=== PATIENT | female | born 1985 | race Caucasian/White ===

== ENCOUNTER 2016-05-03 02:12 | Outpatient (CLI) | payer BC ==
[~2016-05-03] VITALS: Ht 162.6 cm; Wt 67.0 kg
[2016-05-03 04:26] VITALS: Ht 162.6 cm; Wt 67.0 kg
[2016-05-03] MEDS ORDERED: CHOL1000 PO (04:36)
[2016-05-03] MEDS ORDERED: PRENTAB26 PO (04:36)
--- NOTE | 2016-05-11 07:31 | EDITING REQUIRED CODING QUERY ---
DIAGNOSIS NEEDED To promote full compliance with coding requirements relating to patient care, physician participation is requested in all cases of medical biller/coder uncertainty. Please assist us with the question(s) below: Coding Question: The patient received care in labor and delivery on 05/03/16 as noted within the record. Please document the diagnosis that is being addressed by the medication/treatment. Provider Response: DIAGNOSIS: Irregular uterine contractions Thank you for your assistance, Hanane Li - [employer]
== END 2016-05-03 05:09 | disposition home or self-care (01) ==
LOC: C.LD 02:12 → C.OPB 02:12
PROVIDERS: ATTEND Obstetrics & Gynecology
DX: O62.9 Abnormality of forces of labor, unspecified (principal); Z3A.37 37 weeks gestation of pregnancy

== ENCOUNTER 2016-05-28 04:59 | Inpatient (IN) | payer BC ==
[~2016-05-28] VITALS: Ht 160 cm; Wt 68.0 kg
[~2016-05-28 04:59] MED LIST: CHOL1000 PO; PRENTAB26 PO
[2016-05-28 05:30] VITALS: Ht 160 cm; Wt 68.0 kg
[2016-05-28] MEDS ORDERED: LACTATED RINGER'S 1000ML 1,000 ML IV SCH ×2 (05:37→08:45)
[2016-05-28] MEDS ORDERED: LACTATED RINGER'S 1000ML 1,000 ML IV PRN (05:37)
[2016-05-28 06:20] LABS: HEMATOCRIT 30.1 % (37-47); MEAN CELL VOLUME 74.5 fL (80-100); MEAN CORPUSCULAR HEMOGLOBIN 23.5 pg (25-34); MEAN CORPUSCULAR HGB CONC 31.6 g/dl (32-36); MEAN PLATELET VOLUME 9.3 fL (7.4-10.4); PLATELET COUNT 190 K/uL (130-400); RED BLOOD COUNT 4.04 M/uL (4.2-5.4)
[2016-05-28] MEDS ORDERED: OXYTOCIN 30 UNITS/500ML NSS IV ONE (08:09)
[2016-05-28] MEDS ORDERED: HYDROCORTISONE ACETATE 25 MG SUPP PR PRN (08:45)
[2016-05-28] MEDS ORDERED: OXYTOCIN 30 UNITS/500ML NSS IV PRN (08:45)
[2016-05-28] MEDS ORDERED: SUPERCREAM 0.870 % 15GM JAR EXT PRN (08:45)
[2016-05-28] MEDS ORDERED: OXYCODONE/ACETAMINOPHEN 5-325 TAB PO PRN (08:45)
[2016-05-28] MEDS ORDERED: LANOLIN OINT EXT PRN ×2 (08:45)
[2016-05-28] MEDS ORDERED: BENZOCAINE 20% AER SPR 82.5 GM CAN EXT PRN (08:45)
[2016-05-28] MEDS ORDERED: ACETAMINOPHEN 325 MG TAB PO PRN (08:45)
[2016-05-28] MEDS ORDERED: DIPHTHERIA/TETANUS/PERTUSSIS 0.5 ML SYR/VIAL IM. ONE (08:45)
[2016-05-28] MEDS ORDERED: MEASLES, MUMPS & RUBELLA VIRUS VIAL SQ. ONE (08:45)
--- NOTE | 2016-05-28 09:32 | DELIVERY SUMMARY ---
DATE OF OPERATION: 05/28/2016 DATE OF DELIVERY: 05/28/2016. TIME OF DELIVERY OF BABY: 0824 a.m. TIME OF DELIVERY OF PLACENTA: 0830 p.m. DETAILS OF DELIVERY: The patient was found to be fully dilated and desired to push. She pushed for about 5 minutes and delivered the head without difficulty in direct occipital posterior position. Shoulders were delivered with minimal obstruction. The baby was handed off to the mother where the mouth and nose were suctioned. Cord was clamped x2 and cut. It was 3-vessel cord. Cord blood was obtained. Vagina and perineum were checked for lacerations, there was a second degree perineal laceration in the midline with extension into the mid 1/3 of vagina. It was confirmed with rectal exam and good sphincter tone was noted. Gloves were changed. 1% lidocaine was used for local anesthesia before repair. Then placenta was found to be in the vagina and delivered spontaneously intact and complete. Uterus was explored and found to be empty. Lower segment was cleared of all clots and debris. The fundus was firm. EBL was 200. The perineal laceration was repaired with 2-0 Vicryl in a running locked fashion bringing the vaginal mucosa together, perineal bladder muscles together, bulbocavernosis muscles together and skin in subcuticular fashion. Excellent hemostasis was achieved. Rectal exam was done and found good sphincter tone and no sutures were felt. Gloves were changed. Mother and baby tolerated the procedure well. Sponge, lap and needle counts were correct x2. Baby was a viable male , Apgars 8/9, weight is 4040 gr. No complications happened and I was present during the whole procedure. I attest to the content of the Intraoperative Record and any orders documented therein. Any exceptions are noted below. MTDD
[2016-05-28 11:05] VITALS: BP 97/64; PULSE 81; TEMP 36.2
[2016-05-28] MEDS: IBUPROFEN 600 MG TAB PO PRN ×2 (14:06→19:37)
[2016-05-28 15:45] VITALS: BP 97/64; PULSE 70; TEMP 36.3
[2016-05-28] MEDS: DOCUSATE SODIUM 100 MG CAP PO SCH (19:36)
[2016-05-28 20:00] VITALS: BP 107/63; PULSE 60; TEMP 36.6
[2016-05-29] VITALS: BP 101/67; PULSE 67; TEMP 36.5
[2016-05-29] MEDS: IBUPROFEN 600 MG TAB PO PRN ×2 (02:42→08:13)
[2016-05-29 04:30] VITALS: BP 98/61; PULSE 62; TEMP 36.5
[2016-05-29 06:18] LABS: HEMATOCRIT 26.5 % (37-47)
[2016-05-29] MEDS ORDERED: PRENATAL VITAMIN TAB PO SCH (08:00)
[2016-05-29] MEDS ORDERED: FERROUS SULFATE 325 MG TAB PO SCH (08:00)
[2016-05-29] MEDS: DOCUSATE SODIUM 100 MG CAP PO SCH (08:11)
[2016-05-29 08:15] VITALS: BP 109/70; PULSE 86; TEMP 36.4; O2SAT 98
--- NOTE | 2016-05-29 11:28 | Discharge Instructions ---
Discharge Instructions Admission Reason for Admission: Uterine Contractions At Greater Than 20 Weeks Of Discharge Discharge Diagnosis / Problem: Vaginal delivery Discharge Goals Goal(s): Routine recovery after delivery Medications Continue Dispensed Medications: supercream, dermaplast, tucks, lansinoh Activity Recommendations Activity Limitations: per Instructions/Follow-up section . Instructions / Follow-Up Instructions / Follow-Up ACTIVITY RECOMMENDATIONS: * Gradual return to full activity over the next 2-3 weeks. * No lifting - nothing heavier than baby over the next 2-3 weeks. * Do not engage in vigorous exercise, sexual activity or sports until cleared by your physician. * Do not drive or operate any motorized equipment until cleared by your physician. * You may shower/bathe daily. BREAST CARE: If you are not breast feeding: * Wear a supportive bra 24 hours a day for one to two weeks. * Avoid stimulating your breasts and nipples as much as possible during the first few weeks after delivery. * When taking a shower, have the warm water hit your back, not breasts. * When your breasts feel full, apply ice packs. Usually three to four times a day helps ease the discomfort. * Take a mild pain medication (Tylenol/Motrin) when you are uncomfortable. If breast feeding: * Use breast milk to lubricate nipples. Lansinoh cream may be used for sore nipples. You do not need to remove cream prior to breast feeding. If using a different brand of cream, check the label for directions regarding removal of cream prior to nursing. * Wear a supportive bra. * If having problems with breasts or breast feeding, call a audit consultant or your health care provider. EPISIOTOMY CARE: After delivery, if you have an episiotomy (stitches), the following steps will ease discomfort and aid healing. * For the first 24 hours after delivery, place ice packs next to your episiotomy to help reduce swelling. * After the first 24 hour-period, sitz baths, either portable or in the tub, are suggested. A shower with a shower arm sprayed over the episiotomy may be comforting. * [place] care should be done after each voiding and bowel movement. Squirt warm water from a plastic bottle over the perineum (region of the body between the anus and urinary opening) and pat dry. * Use Dermoplast to ease discomfort. Shake container. [place] directly over the episiotomy. * Place a Tucks on a clean sanitary pad next to your episiotomy. OVER THE COUNTER MEDICATION: * For discomfort or pain, you may use Acetaminophen (Tylenol), Ibuprofen (Advil ), or Naproxen (Aleve) following the package directions. * For constipation you may use Colace following the package directions. SPECIAL CARE INSTRUCTIONS: When you are discharged from the hospital, it is important for you to follow the instructions listed below: * During the first week at home, you should be able to care for yourself and your baby. In addition, the usual light household activities are encouraged. * Limit your activities to the way you feel. Do not try to clean the house or move furniture. Be sensible. * If you actively engage in sports and have done so up until the time of your delivery, you may resume these activities as soon as you feel able. This may take up to one month or even longer. Use good judgment. * Continue to take your vitamins for at least six weeks after the of your baby. * Your diet need not be limited unless you were on a special diet before your delivery. Breast-feeding mothers need around 2500 calories per day and at least 64-80 ounces of fluid per day (8 to 10 glasses). * You should eat foods from the four major food groups. Crash diets or fad diets are to be avoided. Eating lean meats, fresh fruits and vegetables, low-fat dairy products, high fiber foods and a regular exercise program, will help you get back to your pre- weight without putting your health at risk. * Constipation is sometimes a problem after delivery. Take a mild laxative as needed. If breast feeding, Milk of Magnesia is acceptable to use. You may use a suppository or Fleets enema if no episiotomy. * A daily shower or tub bath is suggested. Be sure to thoroughly and gently dry the perineum. * A bloody vaginal discharge will usually continue until around four weeks post . A small amount of bleeding may continue for as long as six weeks. Vaginal discharge changes from the bright red bleeding after delivery to pink then brownish and finally yellowish-pink before becoming white and disappearing. * Bleeding may increase with activity. Your first period may come in 4-8 weeks. If you are breast feeding, your period may be delayed even longer. * [place] (sex) can begin whenever both you and your partner feel comfortable and do not have any form of genital infection. It is recommended that you wait until after your return appointment and discuss with your physician. If you have questions, please talk to your health care practitioner. A condom should be used to prevent infection and . * Foreplay, gentle intercourse and lubrication is very important the first several times to prevent pain. A water-based lubricant such as K-Y jelly or Astroglide may be used. * Tampons may be used six weeks after delivery. * Douching should be avoided for 6 weeks after delivery. * If you have RH negative blood and your baby is RH positive, you will receive RHOGAM by injection prior to discharge. The nurse will give you a card to keep with you that has the date and place that you received RHOGAM after delivery. * During your care, you had a Rubella screen done to check for the presence of rubella antibodies in your blood. If your test was negative, you will receive a Rubella vaccine prior to discharge. This vaccine may cause a fever, soreness at the injection site and flu-like symptoms. If these symptoms persist, notify your health care practitioner. is not advised for three months after a Rubella vaccine. There is a higher chance of having a baby with defects if conceived within three months of getting the vaccine. * If you were discharged 24 hours from delivery or before 48 hours: Visiting nurses will come to your home 48 hours after discharge to assess you and your baby. The visiting nurse will meet with you while you are in the hospital to arrange a time and get directions to your home. * Verbalizes understanding of car seat law as reviewed with patient nursing. * Car Seat hand-out given and reviewed with patient by nursing. * Shaken baby information reviewed with patient by nursing. Call you doctor if: * Heavy bleeding (saturating several pads an hour) or passing clots the size of your fist. * A fever >101 degrees F (38.3 degrees C) on two occasions four hours apart and/or chills. * Unusual pain in the pelvic or vaginal areas. * "Baby Blues" lasting longer than two weeks. If you have any questions or concerns, call your health care practitioner at . FOLLOW-UP VISIT: * Please call the office at to schedule a 6 week examination. It is important you keep this appointment. * It is important for you to make arrangements for either yearly or twice yearly check-ups thereafter. Current Hospital Diet Patient's current hospital diet: Regular OB Diet Discharge Diet Recommended Diet: Regular OB Diet Pending Studies Studies pending at discharge: no Medical Emergencies . Who to Call and When: Medical Emergencies: If at any time you feel your situation is an emergency, please call 911 immediately. . Non-Emergent Contact Non-Emergency issues call your: Primary Care Provider, Client Support Coordinator . . "Provider Documentation" section prepared by Marcelino Hughes. VTE Core Measure Inpt VTE Proph given/why not?: Treatment not indicated
--- NOTE | 2016-05-29 11:30 | OB/GYN Progress Note ---
[employer] Progress Note Date of Service May 29, 2016. Subjective conversation w/ patient Ambulation: ambulating normally Voiding: no voiding problems Passing Gas: Yes Diet Tolerance: Regular Diet Lochia: Moderate Feeding Type: Breast Feeding Pain: 4/10 Notes: Doing well, no concerns. Would like to go home today. Objective Vital Signs Date Time Temp Pulse Resp B/P Pulse Ox O2 Delivery O2 Flow Rate FiO2 05/29/16 08:15 Room Air 05/29/16 04:30 36.5 62 18 98/61 Room Air 05/29/16 00:00 36.5 67 18 101/67 Room Air 05/29/16 00:00 Room Air 05/28/16 20:00 36.6 60 18 107/63 Room Air 05/28/16 15:45 36.3 70 20 97/64 Physical Exam General Appearance: WELL-APPEARING Respiratory/Chest: chest non-tender, lungs clear Cardiovascular: regular rate, rhythm Abdomen: normal bowel sounds, soft Fundus: Firm, Non-Tender Extremities: normal range of motion, non-tender Laboratory Results Last 24 Hours Test 05/29/16 05:47 Hemoglobin 8.5 g/dL Hematocrit 26.5 % Assessment and Plan Post- Day Number: 1 Continue Routine Care: -D/C home today -F/U in 6 weeks.
[2016-05-29] MEDS ORDERED: MISC-696 (11:34)
[2016-05-29 12:55] VITALS: BP_DIAS 70; PULSE 86; TEMP 36.4
[2016-05-29] MEDS ORDERED: BISACODYL 5 MG TABEC PO SCH (20:00)
[2016-05-30] MEDS ORDERED: BISACODYL 10 MG SUPP PR PRN (07:00)
== END 2016-05-29 13:00 | disposition home or self-care (01) | DRG 775 ==
LOC: C.OPB 04:59 → C.LD 04:59 → C.OPB 05:38 → C.LD 05:38 → C.OBG 11:36
PROVIDERS: ADMIT Obstetrics & Gynecology; ATTEND Obstetrics & Gynecology
PROC: 0KQM0ZZ Repair Perineum Muscle, Open Approach (ICD-10-PCS; principal; 2016-05-28)
PROC: 10E0XZZ Delivery of Products of Conception, External Approach (ICD-10-PCS; principal; 2016-05-28)
DX: O48.0 Post-term pregnancy (principal); O36.0130 Maternal care for anti-D [Rh] antibodies, third trimester, not applicable or unspecified; Z37.0 Single live birth; O70.1 Second degree perineal laceration during delivery; Z3A.40 40 weeks gestation of pregnancy